=== PATIENT | female | born 1940 | race Caucasian/White ===

== ENCOUNTER 2023-05-13 17:03 | Emergency (ER) | payer MEDICARE, BC, SELFPAY ==
[2023-05-13 17:07] VITALS: BP 113/90
[2023-05-13] MEDS: TYLENOL 1000 MG PO (17:58)
--- NOTE | 2023-05-13 22:41 | ED.MUSCINJ ---
HPI-Injury
General
Chief Complaint: Fall
Source: patient
Exam Limitations: none
Time Seen by Provider: 05/13/23 17:20
Nursing documentation reviewed up to this point in time: agreed with
Travel History
Have you had any contact with someone who has COVID-19?: No
Do you have any symptoms of coronavirus? Fever > 100 degrees, chills, cough, shortness of breath, sore throat, loss of taste or smell, muscle aches, or headache?: No
History of Present Illness-Injury
Is this injury a work related problem?: No
Is pt an associate of [facility]?: No
Initial Injury comments:
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 Hit right side of head on tile floor. No LOC. Has hematoma at site. Complains of pain to right rwist. Incident occurred yesterday. She was seen at . Xray showed fx right
wrist. Sent to ED for eval
Past History
Past History
ED Past Medical History: Hypercholesterolemia
ED Past Surgical History: Cholecystectomy and Gynecological
Social History
Tobacco: Non-smoker
Living: with family
Employment: Retired
Review of Systems
Review of Systems
Allergies reviewed?: Yes
All Other Systems: ROS reviewed and negative except as documented in HPI and ROS
Constitutional: Reports no symptoms
EENT: Reports no symptoms
Respiratory: Reports no symptoms
Cardiac: Reports no symptoms
ABD/GI: Reports no symptoms
: Reports no symptoms
Musculoskeletal: Reports joint pain (Pain toright wrist.)
Skin: Reports other (hematoma to right forehead)
Neurological: Reports headache
Psychiatric: Reports no symptoms
Musculoskeletal Injury Exam
Musculoskeletal Injury Exam
Right Wrist:
Pain with Movement?: Moderate
Tender to palpation?: Moderate
Soft tissue swelling?: Mild
External deformity and angulation?: None
Joint effusion?: None
Contusion?: None
Hematoma-local bleeding into tissue?: Moderate
Strain- Sprain- Tear (Connective tissue injury)?: Moderate
Crepitus with movement?: No
Joint instability?: No
Malalignment/deformity?: No
Range of motion: Limited
Distal skin color and temperature: normal-warm & good color
Capillary Refill: normal
Normal distal neurovascular exam?: Yes
Peripheral Pulses: radial (left): 3+
Phy Exam
General Physical Exam
General Presentation: well appearing and no apparent distress
General age: appears stated age
General Skin: warm and dry
General Habitus: normal
General Mental: alert
General Hydration: appears well hydrated
Neurological Exam
Neurological Exam: alert, oriented x3, CN II-XII intact, no motor deficits, no sensory deficits and speech normal
[place] Coma Scale
Eye Opening: Spontaneous
Verbal Response: Oriented
Motor Response: Obeys Commands
GCS Total Score: 15
Musculoskeletal Exam
Musculoskeletal Exam: neuro vasc intact
Skin Exam
Skin Exam: normal color, warm/dry and no rash
Psychiatric Exam
Psychiatric Exam: normal mood/affect
Injury Course
Orders/Labs/Results
Orders:
Orders
05/13/23 17:51
Sling Right-Treatment ONCE
Volar Right-Treatment ONCE
Acetaminophen [Tylenol] 1,000 mg PO NOW STA
05/13/23 17:52
CT Head W/o Iv Contrast Urgent
Comment:
Reason For Exam: trauma
*Radiology
Radiology exam reviewed: other ( xray - fx distal radius)
*Pulse Oximetry
Patient hypoxic: no
*Critical Care Note
Total Time (30-74mins, 75-104mins- exclusive of procedures): Not Applicable
ED Attending Note
-
Portions of this chart may have been created with voice recognition software.� Occasional wrong word or��sound alike� substitutions may have occurred due to the inherent limitations of voice recognition software.
Discharge Plan
Departure
Patient Disposition: Home (Routine Discharge)
Date of Disposition: 05/13/23
Time of Disposition: 18:44
Patient with high blood pressure during this ER visit?: No
Condition: Good
Covid-19: Not Applicable
Discharge Problem:
Head injury, Fracture of wrist
Instructions: Head Injury in Adults (DC), Preventing falls in adults, How to Use a Shoulder Sling, Splint Care, Wrist Fracture
Prescriptions:
No Action
atorvastatin [Lipitor] 10 MG tablet
10 mg PO DAILY
Referrals:
Kye Gudino MD [Family Provider] -
Gilberto Franco MD [Active] - Call in 1-3 days for appt
Interventions
Interventions:
*Risk Screen - Suicide Last Done: 05/13/23 17:07
*General Assessment Last Done: 05/13/23 17:07
*Neglect/Abuse Screening Last Done: 05/13/23 17:07
ED- Fall Risk Assessment Last Done: 05/13/23 18:13
*Nursing Disposition Last Done: 05/13/23 18:52
ED-Musculoskeletal Assessment Last Done: 05/13/23 18:13
ED- Neurological Assessment Last Done: 05/13/23 18:13
ED-Skin Assessment Last Done: 05/13/23 18:14
Discharge Date and Time
Discharge Date/Time: 05/13/23 18:53
== END 2023-05-13 18:53 | disposition home or self-care (01) ==
LOC: EMR 17:03
PROVIDERS: EMERGENCY PHYSICIAN Emergency Medicine; FAMILY PHYSICIAN Internal Medicine
DX: S09.90XA Unspecified injury of head, initial encounter (principal); S00.83XA Contusion of other part of head, initial encounter; S62.101A Fracture of unspecified carpal bone, right wrist, initial encounter for closed fracture; W18.09XA Striking against other object with subsequent fall, initial encounter; E78.00 Pure hypercholesterolemia, unspecified; Z87.891 Personal history of nicotine dependence; Z90.49 Acquired absence of other specified parts of digestive tract
CPT/HCPCS: 99283; 29125; 70450